=== PATIENT | male | born 1940 | race Caucasian/White ===

== ENCOUNTER 2021-06-12 18:48 | Emergency (ER) | payer MEDICARE, OTHER ==
[~2021-06-12] VITALS: Ht 172 cm; Wt 86.1 kg
[~2021-06-12 18:48] MED LIST: ALBT2T PO; AVOD0.5CAP PO; CPR500T PO; HYDR1TAB66 PO; TERA10CA15 PO
[2021-06-12 19:33] LABS: HEMOGLOBIN 15.6 g/dL (13.3-17.7); MEAN CORPUSCULAR VOLUME 85 fL (80-99); MONOCYTES # (AUTO) 0.5 10^3/uL (0.0-1.0)
--- NOTE | 2021-06-12 19:33 | ED General ---
General Chief Complaint: Neurological Problems Stated Complaint: DIZZINESS, N/V, HIGH BP Source of Information: Patient Exam Limitations: No Limitations History of Present Illness Date Seen by Provider: Jun 12, 2021 Time Seen by Provider: 19:31 Initial Comments To ER by private vehicle accompanied by his daughter. He complains of some brief left leg tingling sensation that lasted for less than 10 minutes earlier today at around noon. He also was noted to have some difficulty walking in a straight line according to his daughter who was present. At that same time he was visiting with his brother outside when he got nauseated and then walked back home. At this time he feels fine. He denies chest pain or shortness of breath now or at any time. No fevers chills or cough. He states that whenever he stood up he had a sensation of lightheadedness. He denies dizziness or any spinning sensation. He denies any headache. He spent most of the day yesterday outside weed [place] around the pond. Timing/Duration: 4-6 Hours Severity: Moderate Associated Systoms: Denies Symptoms Allergies and Home Medications Allergies Coded Allergies: No Known Drug Allergies (Unverified , 12/31/10) Home Medications Albuterol Sulfate 2 Mg Tablet, 1 TAB PO TID, (Reported) Dutasteride 0.5 Mg Capsule, 0.5 MG PO DAILY, (Reported) Terazosin Hcl 10 Mg Capsule, 1 EACH PO HS, (Reported) Patient Home Medication List Home Medication List Reviewed: Yes Review of Systems Review of Systems Constitutional: see HPI EENTM: see HPI Respiratory: no symptoms reported Cardiovascular: no symptoms reported Genitourinary: no symptoms reported Musculoskeletal: no symptoms reported Skin: no symptoms reported Psychiatric/Neurological: No Symptoms Reported Hematologic/Lymphatic: No Symptoms Reported Immunological/Allergic: no symptoms reported Past Iljkvdw-[place]-Mrtgpl Hx Past Medical History Reproductive Disorders: No Physical Exam Vital Signs Vital Signs - First Documented 06/12/21 19:02 Temp 36.7 Pulse 48 Resp 16 B/P (MAP) 193/94 (127) Pulse Ox 99 O2 Delivery Room Air Capillary Refill : Height, Weight, BMI Height: '" Weight: lbs. oz. kg; BMI Method: General Appearance: No Apparent Distress, WD/WN, Other (Alert and oriented no d istress sinus bradycardia seen on the monitor with a rate of about 50. Alert and oriented GCS 15 no neurologic deficits. NIH 0. Hypertensive at 190/90.) Eyes: Bilateral Eye Normal Inspection, Bilateral Eye PERRL, Bilateral Eye EOMI Neck: Full Range of Motion, Normal Inspection Respiratory: Normal Breath Sounds, No Accessory Muscle Use, No Respiratory Distress Cardiovascular: Normal Peripheral Pulses, Bradycardia Gastrointestinal: Non Tender, Soft Extremity: Normal Capillary Refill, Normal Inspection Neurologic/Psychiatric: Alert, Oriented x3 Skin: Normal Color, Warm/Dry Progress/Results/Core Measures Suspected Sepsis SIRS Temperature: Pulse: Respiratory Rate: Laboratory Tests 06/12/21 17:28: White Blood Count 6.1 Blood Pressure / Mean: Laboratory Tests 06/12/21 17:28: Creatinine 1.41H, INR Comment 1.0, Platelet Count 81L, Total Bilirubin 1.9H Results/Orders Lab Results Laboratory Tests Test 06/12/21 17:28 06/12/21 19:40 06/12/21 19:47 Range/Units White Blood Count 6.1 4.3-11.0 10^3/uL Red Blood Count 5.36 4.30-5.52 10^6/uL Hemoglobin 15.6 13.3-17.7 g/dL Hematocrit 46 40-54 % Mean Corpuscular Volume 85 80-99 fL Mean Corpuscular Hemoglobin 29 25-34 pg Mean Corpuscular Hemoglobin Concent 34 32-36 g/dL Red Cell Distribution Width 14.6 H 10.0-14.5 % Platelet Count 81 L 130-400 10^3/uL Mean Platelet Volume 10.2 9.0-12.2 fL Immature Granulocyte % (Auto) 2 % Neutrophils (%) (Auto) 71 42-75 % Lymphocytes (%) (Auto) 17 12-44 % Monocytes (%) (Auto) 8 0-12 % Eosinophils (%) (Auto) 2 0-10 % Basophils (%) (Auto) 1 0-10 % Neutrophils # (Auto) 4.4 1.8-7.8 10^3/uL Lymphocytes # (Auto) 1.1 1.0-4.0 10^3/uL Monocytes # (Auto) 0.5 0.0-1.0 10^3/uL Eosinophils # (Auto) 0.1 0.0-0.3 10^3/uL Basophils # (Auto) 0.1 0.0-0.1 10^3/uL Immature Granulocyte # (Auto) 0.1 0.0-0.1 10^3/uL Percent Immature Platelet Fraction 3.3 0.0-7.6 % Prothrombin Time 14.0 12.2-14.7 SEC INR Comment 1.0 0.8-1.4 Activated Partial Thromboplast Time 32 24-35 SEC D-Dimer 0.63 H 0.00-0.49 UG/ML Sodium Level 140 135-145 MMOL/L Potassium Level 4.3 3.6-5.0 MMOL/L Chloride Level 108 H 98-107 MMOL/L Carbon Dioxide Level 24 21-32 MMOL/L Anion Gap 8 5-14 MMOL/L Blood Urea Nitrogen 21 H 7-18 MG/DL Creatinine 1.41 H 0.60-1.30 MG/DL Estimat Glomerular Filtration Rate 48 BUN/Creatinine Ratio 15 Glucose Level 122 H 70-105 MG/DL Calcium Level 9.2 8.5-10.1 MG/DL Corrected Calcium 9.2 8.5-10.1 MG/DL Total Bilirubin 1.9 H 0.1-1.0 MG/DL Aspartate Amino Transf (AST/SGOT) 18 5-34 U/L Alanine Aminotransferase (ALT/SGPT) 20 0-55 U/L Alkaline Phosphatase 58 40-136 U/L Troponin I < 0.028 <0.028 NG/ML Total Protein 6.9 6.4-8.2 GM/DL Albumin 4.0 3.2-4.5 GM/DL Glucometer 121 H 70-110 MG/DL Urine Color YELLOW Urine Clarity CLEAR Urine pH 5.5 5-9 Urine Specific [place] >=1.030 1.016-1.022 Urine Protein NEGATIVE NEGATIVE Urine Glucose (UA) NEGATIVE NEGATIVE Urine Ketones NEGATIVE NEGATIVE Urine Nitrite NEGATIVE NEGATIVE Urine Bilirubin NEGATIVE NEGATIVE Urine Urobilinogen 0.2 < = 1.0 MG/DL Urine Leukocyte Esterase NEGATIVE NEGATIVE Urine RBC (Auto) 2+ H NEGATIVE Urine RBC 5-10 H /HPF Urine WBC RARE /HPF Urine Squamous Epithelial Cells 2-5 /HPF Urine Crystals NONE /LPF Urine Bacteria TRACE /HPF Urine Casts NONE /LPF Urine Mucus SMALL H /LPF Urine Culture Indicated NO My Orders Orders - JAHAIRA FORMAN RESIDENT ENGINEER Cbc With Automated Diff (06/12/21 19:25) Protime With Inr (06/12/21:) Partial Thromboplastin Time (06/12/21:) Comprehensive Metabolic Panel (06/12/21:) Fibrin Degradation Products (06/12/21) Troponin I (06/12/21:) Ua Culture If Indicated (06/12/21:) Chest 1 View, Ap/Pa Only (06/12/21:) Ekg Tracing (06/12/21) Accucheck Stat ONCE (06/12/21:) Ed Iv/Invasive Line Start (06/12/21:) Ed Iv/Invasive Line Start (06/12/21) Vital Signs Stroke Patient Q15M (06/12/21) O2 (06/12/21:) Intake & Output 06,14,22 (06/12/21:) Monitor-Rhythm Ecg Trace Only (06/12/21:) Dysphagia Screening Tool (06/12/21:) Post Thrombolytic Adminstratio (06/12/21:) Lipid Panel (06/13/21 06:00) Ct Angio Head/Neck (06/12/21 19:27) Iohexol Injection (Omnipaque 350 Mg/Ml 1 (06/12/21 20:15) Received Contrast (Hold Metformin- Contr (06/12/21 20:15) Ns (Ivpb) (Sodium Chloride 0.9% Ivpb Bag (06/12/21 20:15) Lactated Ringers (Lr 1000 Ml Iv Solution (06/12/21 20:30) Medications Given in ED Current Medications Medications Dose Ordered Sig/Jarrett Route Start Time Stop Time Status Last Admin Dose Admin Iohexol 75 ml ONCE ONCE IV 06/12/21 20:15 06/12/21 20:16 DC 06/12/21 20:11 75 ML Sodium Chloride 100 ml ONCE ONCE IV 06/12/21 20:15 06/12/21 20:16 DC 06/12/21 20:11 80 ML Vital Signs/I&O 06/12/21 06/12/21 19:02 19:16 Temp 36.7 Pulse 48 Resp 16 B/P (MAP) 193/94 (127) Pulse Ox 99 100 O2 Delivery Room Air Room Air Capillary Refill : Departure Communication (Admissions) 9430-reports that he still feels fine Impression Primary Impression: Dehydration Disposition: 01 HOME, SELF-CARE Condition: Stable Departure-Patient Inst. Decision time for Depature: 20:46 Referrals: FE DIANE DO (PCP/Family) Primary Care Physician Patient Instructions: Dehydration, Adult ED Copy Copies To 1: FE DIANE DO NIH Stroke Scale NIH Stroke Scale NIH : Select: Initial Level of Consciousness: 0=Alert Level of Consciousness-Quest[place]: 0=Answers both month/age LOC Commands: 0=Performs both tasks Gaze: 0=Normal Visual Hill: 0=No visual loss Facial Movement (Facial Paresi: 0=Normal symmetrical mnt Motor Function-Arms Right: 0=No drift Motor Function-Arms Left: 0=No drift Motor Function-Legs Right: 0=No drift Motor Function-Legs Left: 0=No drift Limb Ataxia: 0=Absent Sensory: 0=Normal:no loss Best Language: 0=No aphasia Dysarthria: 0=Normal Extinction & Inattention: 0=No abnormality NIH Stroke Scale Score: 0 JAHAIRA FORMAN RESIDENT ENGINEER Jun 12, 2021 19:33
[2021-06-12 19:35] LABS: BASOPHILS # (AUTO) 0.1 10^3/uL (0.0-0.1); BASOPHILS % (AUTO) 1 % (0-10); EOSINOPHILS # (AUTO) 0.1 10^3/uL (0.0-0.3); EOSINOPHILS % (AUTO) 2 % (0-10); HEMATOCRIT 46 % (40-54); LYMPHOCYTES # (AUTO) 1.1 10^3/uL (1.0-4.0); LYMPHOCYTES % (AUTO) 17 % (12-44); MEAN CORPUSCULAR HEMOGLOBIN 29 pg (25-34); MEAN CORPUSCULAR HGB CONC 34 g/dL (32-36); MEAN PLATELET VOLUME 10.2 fL (9.0-12.2); MONOCYTES % (AUTO) 8 % (0-12); NEUTROPHILS # (AUTO) 4.4 10^3/uL (1.8-7.8); NEUTROPHILS % (AUTO) 71 % (42-75); PLATELET COUNT 81 10^3/uL (130-400); WHITE BLOOD COUNT 6.1 10^3/uL (4.3-11.0)
[2021-06-12 19:49] LABS: ALANINE AMINOTRANSFERASE 20 U/L (0-55); ALKALINE PHOSPHATASE 58 U/L (40-136); BILIRUBIN,TOTAL 1.9 MG/DL (0.1-1.0); BUN/CREATININE RATIO 15; CALCIUM 9.2 MG/DL (8.5-10.1); CARBON DIOXIDE 24 MMOL/L (21-32); CHLORIDE 108 MMOL/L (98-107); CREATININE SERUM 1.41 MG/DL (0.60-1.30); GFR ESTIMATED 48; GLUCOSE 122 MG/DL (70-105); POTASSIUM 4.3 MMOL/L (3.6-5.0); SODIUM 140 MMOL/L (135-145); TOTAL PROTEIN 6.9 GM/DL (6.4-8.2)
[2021-06-12 19:54] LABS: BILIRUBIN,URINE NEGATIVE (NEGATIVE); CLARITY,URINE CLEAR; COLOR,URINE YELLOW; GLUCOSE, URINE (UA) NEGATIVE (NEGATIVE); KETONES,URINE NEGATIVE (NEGATIVE); LEUKOCYTE ESTERASE ,URINE NEGATIVE (NEGATIVE); NITRITE,URINE NEGATIVE (NEGATIVE); PH,URINE 5.5 (5-9); PROTEIN,URINE NEGATIVE (NEGATIVE)
--- NOTE | 2021-06-12 20:08 | Diagnostic Imaging Report ---
EXAMINATION: Chest 1 view. HISTORY: Hypertension. COMPARISON: 10/15/2012. FINDINGS: The lung volumes are normal. No focal consolidation is seen. No large pleural effusion or pneumothorax is seen. The cardiomediastinal silhouette is normal in size and contour. No acute osseous abnormality is seen. IMPRESSION: No acute pleuroparenchymal process. Dictated by: Dictated on workstation # [id number]
[2021-06-12 20:09] LABS: FIBRIN DEGRADATION PRODUCTS 0.63 UG/ML (0.00-0.49)
[2021-06-12 20:15] LABS: BACTERIA,URINE TRACE /HPF; WBC,URINE RARE /HPF
[2021-06-12] MEDS ORDERED: HOLD METFORMIN - RECEIVED CONTRAST 20 ML VIAL IV SCH (20:15)
[2021-06-12] MEDS ORDERED: NS 100 ML (IVPB) BAG IV ONE (20:15)
[2021-06-12] MEDS ORDERED: IOHEXOL 350 MG/ML 100 ML (OMNIPAQUE 350) VIAL IV ONE (20:15)
[2021-06-12] MEDS ORDERED: LACTATED RINGERS 1,000 ML IV SCH (20:30)
--- NOTE | 2021-06-12 20:39 | Diagnostic Imaging Report ---
PROCEDURE: CT angiography of the head and CT angiography of the neck with and without contrast. TECHNIQUE: Contiguous noncontrast images were obtained from the skull base through the vertex. After intravenous contrast administration, helical CT angiography of the neck was performed. Source data was reformatted into 3D MIP projections. Delayed post contrast acquisition was also obtained. Auto Exposure Controls were utilized during the CT exam to meet ALARA standards for radiation dose reduction. INDICATION: Difficulty walking. Left leg tingling. Concern for STROKE. COMPARISON: None. FINDINGS: CTA neck: The visualized portions of the aortic arch demonstrate no evidence of aneurysm or dissection. There is conventional branching pattern of the great vessels of the aorta. The brachiocephalic artery is normal in course and caliber. The right and left common carotid origins are unremarkable. The origin of the left subclavian artery is patent. The common carotid arteries and internal carotid arteries demonstrate a tortuous course. There is calcified atherosclerotic plaque in the bilateral carotid bulbs and proximal internal carotid arteries without flow-limiting stenosis. No evidence of dissection in the carotid systems. The external carotid arteries are patent and unremarkable. The vertebral arteries are codominant. The origin of the right vertebral artery is seen and is unremarkable. The origin of the left vertebral artery is seen and is unremarkable. There is no focal stenosis seen within the neck. There is no dissection. The vertebral arteries are well visualized to up to the level of the basilar artery. The osseous structures of the cervical spine are unremarkable. A nodule is seen in the left lobe of the thyroid measuring 2.3 cm. Included views through the lung apices demonstrate no focal consolidation. CTA brain: Atherosclerotic plaque is seen in the lee of the bilateral terminal internal carotid arteries without significant stenosis. No stenosis is seen in the bilateral anterior, middle and posterior cerebral arteries. No evidence of aneurysm in the [place]. In the posterior circulation, both of the vertebral arteries demonstrate normal opacification. The vertebral arteries are codominant. Both the right and left PICA arteries are identified. The basilar artery is normal in course and caliber. The terminal branch vessels, including the superior cerebellar arteries, are unremarkable. CT head: No large acute territorial ischemia, mass or hemorrhage. No midline shift or mass effect. The ventricles, cortical sulci and basilar cisterns are patent and unremarkable. The calvarium is intact. Retained secretions are seen in the bilateral maxillary sinuses. The mastoid air cells are clear. IMPRESSION: 1. No stenosis or aneurysm in the [place]. No evidence of large vessel occlusion. 2. No stenosis or dissection in the bilateral carotid and vertebral arteries. 3. No large acute territorial ischemia, mass or hemorrhage. No midline shift. Dictated by: Dictated on workstation # [id number]
[2021-06-12 21:39] VITALS: BP 153/55
== END 2021-06-12 21:39 | disposition home or self-care (01) ==
LOC: EDUNIT# 18:48 → ER 18:50
DX: E86.0 Dehydration (principal)
CPT/HCPCS: 36415; 70496; 70498; 71045; 80053; 81000; 82947; 84484; 85025; 85379; 85610; 85730; 93005; 93041

== ENCOUNTER → 2021-09-07 | Outpatient (CLI) | payer MEDICARE, OTHER ==
--- NOTE | 2021-09-07 09:44 | Diagnostic Imaging Report ---
EXAMINATION: CT abdomen and pelvis without contrast. TECHNIQUE: Multiple contiguous axial images were obtained through the abdomen and pelvis without the use of intravenous contrast. All CT scans use one or more of the following dose optimizing techniques: automated exposure control, MA and/or KvP adjustment based on patient size and exam type or iterative reconstruction. HISTORY: Gross hematuria COMPARISON: 11/06/2014 FINDINGS: Limited views of the lower thorax show coronary artery calcifications. The liver is normal without focal lesion. There is no biliary ductal dilation. Gallbladder surgically absent. Pancreas is normal. Spleen is normal. Adrenal glands are normal. There are simple cysts in the kidneys. There is an unchanged intermediate attenuation lesion in the lower pole of the left kidney measuring 18 x 12 mm. It is unchanged from 2015 consistent with a hemorrhagic or proteinaceous cyst. There are bilateral peripelvic cysts. There are no renal or ureteral stones. There is no hydronephrosis. Urinary bladder is normal. There are prostatic calcifications. There are radiation therapy markers in the prostate gland. Visualized bowel is normal in caliber without obstruction or inflammation. The appendix is normal. There has been a right inguinal hernia repair. No free fluid or air. No abdominal or pelvic lymphadenopathy. Aorta is normal in caliber without aneurysm. There are no suspicious osseus lesions. There is a fat-containing umbilical hernia. IMPRESSION: 1. No renal or ureteral stones. 2. There are prostatic calcifications and radiation therapy markers. Dictated by: Dictated on workstation # [id number]
== END ==
LOC: RAD 08:55
PROVIDERS: ATTEND Urology
DX: R31.0 Gross hematuria (principal); N42.89 Other specified disorders of prostate
CPT/HCPCS: 74176

== ENCOUNTER 2021-09-15 05:41 | Outpatient (CLI) | payer MEDICARE, OTHER ==
[~2021-09-15] VITALS: Ht 170.2 cm; Wt 88.6 kg
[2021-09-15] MEDS ORDERED: METO-333 PO (13:11)
[2021-09-15] MEDS ORDERED: TERA10CA3 PO (13:11)
[2021-09-15] MEDS ORDERED: DUTA0.5C36 PO (13:11)
== END 2021-09-15 13:21 | disposition home or self-care (01) ==
LOC: PREOP 05:41
PROVIDERS: ATTEND Urology
DX: Z01.818 Encounter for other preprocedural examination (principal)

== ENCOUNTER 2021-09-21 05:56 | Day surgery (SDC) | payer MEDICARE, OTHER ==
[~2021-09-21] VITALS: Ht 170 cm; Wt 88.6 kg
[2021-09-21] VITALS (10 sets, daily range): BP systolic 100–151; BP diastolic 61–87
[~2021-09-21 05:56] MED LIST changes: +DUTA0.5C36 PO; +METO-333 PO; +TERA10CA3 PO
[2021-09-21] MEDS ORDERED: LACTATED RINGERS 1,000 ML IV PRN (06:15)
[2021-09-21] MEDS ORDERED: cefTRIAXone 1 GM PRE-MIX 50 ML IV ONE ×2 (06:15→06:43)
[2021-09-21] MEDS ORDERED: ONDANSETRON 4 MG/2 ML (SDV) Z0FRAN ONE (06:50)
[2021-09-21] MEDS ORDERED: fentaNYL INJ 100 MCG/2 ML AMP ONE (06:50)
[2021-09-21] MEDS ORDERED: SEVOFLURANE (ULTANE) 15 ML INHAL SOLN ONE (06:50)
[2021-09-21] MEDS ORDERED: LIDOCAINE PF 2% 5 ML (XYLOCAINE) VIAL ONE (06:50)
[2021-09-21] MEDS ORDERED: proPOfol 200 MG/20 ML (DIPRIVAN) VIAL IV ONE (06:50)
--- NOTE | 2021-09-21 06:59 | Progress Note-Pre Operative ---
Pre-Operative Progress Note H&P Reviewed The H&P was reviewed, patient examined and no changes noted. Date Seen by Provider: Sep 21, 2021 Time Seen by Provider: 06:58 Date H&P Reviewed: Sep 21, 2021 Time H&P Reviewed: 06:58 Pre-Operative Diagnosis: BLADDER TUMOR (MEDIUM) SUNIL MORIN MD Sep 21, 2021 06:59
--- NOTE | 2021-09-21 07:00 | Progress Note-Post Operative ---
Post-Operative Progess Note Surgeon (s)/Voltage Tester (s) Surgeon SUNIL MORIN MD Voltage Tester: NONE Pre-Operative Diagnosis BLADDER TUMOR (MEDIUM) Post-Operative Diagnosis SAME Procedure & Operative Findings Date of Procedure 09/21/21 Procedure Performed/Findings TURBT Anesthesia Type GENERAL Estimated Blood Loss Estimated blood loss (mL): NEGLIGIBLE Specimens/Packing Specimens Removed TUMOR CHIPS AND BASE Packing: NONE SUNIL MORIN MD Sep 21, 2021 07:00
--- NOTE | 2021-09-21 07:01 | Discharge Inst-Urology ---
Discharge Inst-Urology Reconcile Patient Problems Problems Reviewed?: Yes Final Diagnosis BLADDER TUMOR Patient Instructions/Follow Up Plan/Assessment/Instructions Please make appointment to been seen in office in 2 weeks. Increase oral fluids for 48 hours and then as needed. Diet and Activity as tolerated. If questions or concerns contact your physician Or seek help at emergency department. SUNIL MORIN MD Sep 21, 2021 07:01
[2021-09-21] MEDS ORDERED: ROCURONIUM 10 MG/ML 5 ML SYRINGE IV ONE (07:34)
[2021-09-21] MEDS ORDERED: GLYCOPYRROLATE 0.2 MG/ML (ROBINUL) 2 ML VIAL ONE (07:43)
[2021-09-21] MEDS ORDERED: NEOSTIGMINE 3 MG/3 ML VIAL ONE (07:46)
[2021-09-21] MEDS ORDERED: ONDANSETRON 4 MG/2 ML (SDV) Z0FRAN IVP PRN (08:00)
[2021-09-21] MEDS ORDERED: HYDROmorphone 2 MG/ML VIAL (DILAUDID) IV ONE (08:00)
[2021-09-21] MEDS ORDERED: PHEN-640 PO (08:02)
[2021-09-21] MEDS ORDERED: SULF1TAB38 PO (08:02)
--- NOTE | 2021-09-21 10:56 | Anesthesia-General Post-Op ---
General Patient Condition Mental Status/LOC: Same as Preop Cardiovascular: Satisfactory Nausea/Vomiting: Absent Respiratory: Satisfactory Pain: Controlled Complications: Absent Post Op Complications Complications None Follow Up Care/Instructions Patient Instructions None needed. Anesthesia/Patient Condition Patient Condition Patient is doing well, no complaints, stable vital signs, no apparent adverse anesthesia problems. No complications reported per nursing. D/C home per [facility] Criteria: Yes MARY SNYDER CRNA Sep 21, 2021 10:56
--- NOTE | 2021-09-21 14:48 | OPERATIVE REPORT ---
DATE OF SERVICE: 09/21/2021 PREOPERATIVE DIAGNOSIS: Medium bladder tumor. POSTOPERATIVE DIAGNOSIS: Medium bladder tumor. OPERATION PERFORMED: Transurethral resection of bladder tumor. SURGEON: Sunil Morin MD ANESTHESIA: General. COMPLICATIONS: None. DESCRIPTION OF PROCEDURE: Under satisfactory general anesthesia, the patient in lithotomy position, genitalia were prepped and draped in the usual sterile fashion. Urethra was dilated with Rambo sound to #28 to accommodate a 27-Mong[place] Uriostegui resectoscope. Again, visualized a single medium sized bladder tumor on the left posterior wall above and lateral to the ureteral orifice and away from it. It was completely resected, and base portion was excised and sent separately. Bleeders were cauterized. Resection was complete, hemostasis as well. There was no need for Liang catheter. Bladder was emptied and resectoscope was removed. The patient tolerated the procedure and anesthesia well and was sent to recovery room in stable condition. CC: Dr. Davies - requested, unable to deliver. Job ID: [id number] DocumentID: [id number] Dictated Date: 09/21/2021 08:04:03 Technical Professional Date: 09/21/2021 14:24:09 Dictated By: SUNIL MORIN MD
== END 2021-09-21 09:55 | disposition home or self-care (01) ==
LOC: SDC 05:56
PROVIDERS: ATTEND Urology
DX: C67.9 Malignant neoplasm of bladder, unspecified (principal); I25.10 Atherosclerotic heart disease of native coronary artery without angina pectoris; I10 Essential (primary) hypertension; E78.5 Hyperlipidemia, unspecified; Z79.899 Other long term (current) drug therapy
CPT/HCPCS: 87081